=== PATIENT | female | born 1940 | race Caucasian/White ===

== ENCOUNTER 2020-05-16 10:18 | Observation (INO) ==
[2020-05-16 11:41] LABS: Basophils # 0.1 10*3/uL (0.0-0.2); Basophils % 0.5 % (0.0-0.8); Eosinophils # 0.2 10*3/uL (0.0-0.87); Eosinophils % 2.2 % (0.00-10.9); Hematocrit 40.9 VOL% (35.7-47.0); Hemoglobin 14.4 GM/DL (12.0-16.0); Immature Granulocytes % 0.2 %; Immature Granulocytes Absolute 0.02 #; Lymphocytes # 1.6 10*3/uL (1.4-4.0); Lymphocytes % 17.6 % (21.3-54.2); Mean Corpuscular HGB Conc 35.2 GM/DL (32-36); Mean Platelet Volume 9.6 FL (9.6-12.0); Monocytes % 7.2 % (1.7-12.7); Neutrophils % 72.3 % (38.7-73.9); Platelet Count 277 T/CUMM (130-400); Red Blood Count 4.26 MC/CUMM (3.8-5.5); Red Cell Distribution Width 12.1 % (9.3-17.3); White Blood Count 9.1 T/CUMM (4-12)
[2020-05-16 11:53] LABS: Albumin 3.5 G/DL (3.4-5.0); Bilirubin,Total 0.6 MG/DL (0.2-1.0); Calcium 8.9 MG/DL (8.5-10.1); Osmolality,Calculated 276.7 MOS/KG (273-304); Total Protein 6.8 G/DL (6.4-8.3)
[2020-05-16 12:26] LABS: Bacteria,Urine Occasional /HPF (Few); Bilirubin,Urine Negative (Negative); Blood, Urine Negative (Negative); Glucose,Urine (UA) Negative (Negative); Ketones,Urine 5 mg/dL (Negative); Mucus,Urine Occasional /LPF (Occasional); Nitrite,Urine Negative (Negative); Protein,Urine Negative; RBC,Urine <1 /HPF (0-4); Squamous Epithelial Cell,Urine Occasional /HPF (0-10); Urine Appearance CLEAR (Clear); Urine Color Yellow (Yellow); Urine Specific Gravity 1.015 (1.001-1.035); Urine Urobilinogen < 2.0 EU/DL (0.2-1.0)
[2020-05-16 14:12] LABS: Thyroid Stimulating Hormone 1.33 uIU/ml (0.358-3.74)
[2020-05-16] MEDS ORDERED: ALBUTEROL 2.5 MG/3 ML NEB RESP TX PRN (14:47)
[2020-05-16] MEDS ORDERED: guaiFENesin/DM ER 600-30 MG TABLET PO PRN (14:47)
[2020-05-16] MEDS ORDERED: DEXTROSE 50% 25 GM/50 ML VIAL IV PRN (15:00)
[2020-05-16] MEDS ORDERED: GLUCAGON 1 MG VIAL IM PRN (15:00)
[2020-05-16] MEDS ORDERED: ACETAMINOPHEN 325 MG TABLET PO PRN ×2 (15:09)
[2020-05-16] MEDS ORDERED: LACTULOSE 20 GM/30 ML UDCUP PO PRN (15:09)
[2020-05-16] MEDS ORDERED: DOCUSATE SODIUM 100 MG CAPSULE PO PRN (15:09)
[2020-05-16] MEDS ORDERED: ONDANSETRON 4 MG/2 ML VIAL IV PRN (15:09)
[2020-05-16] MEDS ORDERED: diphenhydrAMINE CAP 25 MG CAPSULE PO PRN (15:09)
[2020-05-16] MEDS ORDERED: NICOTINE 21 MG/24 HR PATCH TRANSDERM PRN (15:09)
[2020-05-16] MEDS ORDERED: ALUMINUM/MAGNES/SIMETH MAX STR 30 ML UDCUP PO PRN (15:09)
[2020-05-16] MEDS ORDERED: CALCIUM CARBONATE CHEW 500 MG TABLET PO PRN (15:09)
[2020-05-16] MEDS ORDERED: hydrALAZINE 20 MG/1 ML VIAL IV PRN (15:09)
[2020-05-16] MEDS ORDERED: SIMETHICONE CHEW 125 MG TABLET PO PRN (15:09)
[2020-05-16] MEDS ORDERED: BISACODYL 5 MG TABLET PO PRN (15:09)
[2020-05-16] MEDS ORDERED: SODIUM CHLORIDE 0.45% 1,000 ML IV SCH (18:30)
[2020-05-16] MEDS: ALBUTEROL/IPRATROPIUM 3 ML NEB RESP TX SCH (19:30)
[2020-05-16] MEDS ORDERED: METOPROLOL TARTRATE 25 MG TABLET PO SCH (21:00)
[2020-05-16] MEDS ORDERED: PROPAFENONE 150 MG TABLET PO SCH ×2 (21:51→23:00)
[2020-05-16] MEDS: PROPAFENONE 225 MG PO SCH (22:45)
[2020-05-16] MEDS: APIXABAN 5 MG TABLET PO SCH (22:45)
[2020-05-17] MEDS: ZALEPLON 5 MG CAPSULE PO PRN ×2 (00:51→20:48)
[2020-05-17] MEDS: ALBUTEROL/IPRATROPIUM 3 ML NEB RESP TX SCH ×4 (01:57→20:14)
[2020-05-17 06:35] LABS: Basophils % 0.4 % (0.0-0.8); Eosinophils # 0.2 10*3/uL (0.0-0.87); Eosinophils % 1.7 % (0.00-10.9); Hematocrit 41.6 VOL% (35.7-47.0); Hemoglobin 14.5 GM/DL (12.0-16.0); Immature Granulocytes % 0.3 %; Immature Granulocytes Absolute 0.03 #; Lymphocytes # 1.9 10*3/uL (1.4-4.0); Mean Corpuscular HGB Conc 34.9 GM/DL (32-36); Mean Corpuscular Volume 97.4 FL (87-102); Mean Platelet Volume 9.6 FL (9.6-12.0); Monocytes % 9.5 % (1.7-12.7); Neutrophils % 69.1 % (38.7-73.9); Platelet Count 248 T/CUMM (130-400); Red Blood Count 4.27 MC/CUMM (3.8-5.5); Red Cell Distribution Width 12.1 % (9.3-17.3); White Blood Count 10.2 T/CUMM (4-12)
[2020-05-17 06:53] LABS: Albumin 3.3 G/DL (3.4-5.0); Bilirubin,Total 1.5 MG/DL (0.2-1.0); Osmolality,Calculated 272.8 MOS/KG (273-304); Risk Ratio 2.35; Total Protein 6.4 G/DL (6.4-8.3); VLDL CHOLESTEROL 10.2 MG/DL
[2020-05-17] MEDS: APIXABAN 5 MG TABLET PO SCH ×2 (08:29→20:48)
[2020-05-17] MEDS: PANTOPRAZOLE 40 MG TABLET PO SCH (08:29)
[2020-05-17] MEDS: PROPAFENONE 225 MG PO SCH ×3 (08:29→20:47)
[2020-05-17] MEDS: CYANOCOBALAMIN 500 MCG TABLET PO SCH (08:29)
[2020-05-17] MEDS ORDERED: ALPRAZolam 0.5 MG TABLET PO ONE (09:05)
[2020-05-17] MEDS: SODIUM CHLORIDE 0.9% 1,000 ML IV SCH (12:05)
[2020-05-17] MEDS ORDERED: PROPAFENONE 225 MG PO SCH (15:00)
[2020-05-18] MEDS: ALBUTEROL/IPRATROPIUM 3 ML NEB RESP TX SCH ×2 (01:00→07:22)
[2020-05-18] MEDS: SODIUM CHLORIDE 0.9% 1,000 ML IV SCH (01:35)
[2020-05-18 06:26] LABS: Basophils % 0.5 % (0.0-0.8); Eosinophils # 0.3 10*3/uL (0.0-0.87); Hematocrit 37.5 VOL% (35.7-47.0); Hemoglobin 12.7 GM/DL (12.0-16.0); Immature Granulocytes % 0.3 %; Immature Granulocytes Absolute 0.03 #; Lymphocytes # 2.1 10*3/uL (1.4-4.0); Lymphocytes % 23.7 % (21.3-54.2); Mean Corpuscular HGB Conc 33.9 GM/DL (32-36); Mean Corpuscular Volume 98.7 FL (87-102); Mean Platelet Volume 9.3 FL (9.6-12.0); Monocytes % 10.6 % (1.7-12.7); Neutrophils % 61.9 % (38.7-73.9); Platelet Count 220 T/CUMM (130-400); Red Cell Distribution Width 12.2 % (9.3-17.3); White Blood Count 8.7 T/CUMM (4-12)
[2020-05-18 06:52] LABS: Albumin 2.9 G/DL (3.4-5.0); Bilirubin,Total 0.6 MG/DL (0.2-1.0); Calcium 8.7 MG/DL (8.5-10.1); Osmolality,Calculated 281.3 MOS/KG (273-304); Total Protein 5.7 G/DL (6.4-8.3)
[2020-05-18] MEDS: PROPAFENONE 225 MG PO SCH (08:31)
[2020-05-18] MEDS: CYANOCOBALAMIN 500 MCG TABLET PO SCH (08:31)
[2020-05-18] MEDS: APIXABAN 5 MG TABLET PO SCH (08:32)
[2020-05-18] MEDS: PANTOPRAZOLE 40 MG TABLET PO SCH (08:32)
[2020-05-18] MEDS ORDERED: busPIRone 10 MG TABLET PO SCH (09:00)
[2020-05-18] MEDS ORDERED: CITALOPRAM 40 MG TABLET PO SCH (10:30)
[2020-05-18] MEDS ORDERED: BENZONATATE 100 MG CAPSULE PO PRN (11:15)
[2020-05-18 12:36] VITALS: BP 176/75
== END 2020-05-18 13:00 | disposition home or self-care (01) ==
LOC: N.EDINP 10:18 → N.ED 10:18 → N.TELES 16:06
PROVIDERS: ADMIT Internal Medicine; ATTEND Internal Medicine